=== PATIENT | male | born 1980 | race Caucasian/White ===

== ENCOUNTER 2024-10-30 07:07 | Outpatient (CLI) | payer MEDICAID ==
[~2024-10-30] VITALS: Ht 175.3 cm; Wt 88.5 kg
[2024-10-30] MEDS: albuterol 2.5 MG/3 ML nebule NEB ONE (07:53)
[2024-10-30 07:56] VITALS: PULSE 78; RESP 16; O2SAT 97
[2024-10-30 08:08] VITALS: PULSE 73; RESP 16
== END 2024-10-30 23:59 | disposition home or self-care (01) ==
LOC: RT 07:07
PROVIDERS: ATTEND Registered Nurse
DX: R94.2 Abnormal results of pulmonary function studies (principal); J45.909 Unspecified asthma, uncomplicated
CPT/HCPCS: 94060; 94729; 94760